=== PATIENT | female | born 1960 | race Caucasian/White ===

== ENCOUNTER 2019-07-16 15:23 | Outpatient (CLI) | payer OTHER, SELFPAY ==
--- NOTE | 2019-07-16 15:24 | MM_ITS ---
WS: [id number] BILATERAL DIGITAL SCREENING MAMMOGRAM WITH CAD CLINICAL INFORMATION: SCREENING HISTORY: Screening mammogram. No current complaints. COMPARISON: September 29, 2018 TECHNIQUE: Bilateral CC and MLO views. FINDINGS: Fatty-replaced breasts bilaterally. A few lucent centered calcifications. No suspicious focal mass, a symmetry, calcifications, or architectural distortion. No evidence of malignancy. MM/[id number] IMPRESSION: BI-RADS: 2-Benign FOLLOW UP: 1 Year Follow-up Recommend return to annual screening mammography.
== END 2019-07-16 15:24 | disposition home or self-care (01) ==
LOC: RADSHAW 15:24
PROVIDERS: Family Provider Family Medicine; PCP Family Medicine; Visit Provider Family Medicine
DX: Z12.31 Encounter for screening mammogram for malignant neoplasm of breast (principal)
CPT/HCPCS: 77067

== ENCOUNTER 2021-05-06 15:53 | Emergency (ER) | payer OTHER, SELFPAY ==
--- NOTE | 2021-05-06 03:22 | XRR_ITS ---
PROCEDURE INFORMATION: Exam: XR Chest Exam date and time: 05/06/2021 3:22 AM Age: 61 years old Clinical indication: Cough and dyspnea and fever; Additional info: SOB covid symptoms TECHNIQUE: Imaging protocol: XR of the chest. Views: 1 view. Total images: 1 COMPARISON: No relevant prior studies available. FINDINGS: Lungs: Subtle predominately bibasilar ground-glass interstitial lung disease which could reflect active interstitial pneumonitis. Pleural spaces: No pleural effusion. No pneumothorax. Heart/Mediastinum: Cardiac structures in configuration within normal limits. Bones/joints: Mild scoliotic curvature of the spine. Other findings: Obesity. XR/XR chest 1V portable [id number] IMPRESSION: Subtle predominately bibasilar ground-glass interstitial lung disease which could reflect active interstitial pneumonitis.
[2021-05-06 16:22] VITALS: BP 150/92; PULSE 100; RESP 16; TEMP 39.6; O2SAT 93; BMI 41.5
--- NOTE | 2021-05-06 17:08 | PC.NURSE ---
spoke with patient, she is in the COVID room, UA cup given, advised of needing urine sample, will update lab
[2021-05-06 19:34] LABS: Basophils % 0.2 %; Hematocrit 43.3 % (37.0-47.0); Hemoglobin 14.3 g/dL (11.5-15.3); Lymphocytes # 0.8 10^3/uL (0.8-4.8); Lymphocytes % 19.1 %; Mean Corpuscular Hemoglobin 29.1 pg (28.0-34.0); Mean Corpuscular Volume 88.2 fl (81-99); Mean Platelet Volume 9.6 fL (7.4-10.4); Monocytes # 0.2 10^3/uL (0.2-0.9); Monocytes % 3.7 %; Neutrophils # 3.13 10^3/uL (1.8-7.7); Neutrophils % 76.5 %; Nucleated Red Blood Cells % 0 %; Platelet Count 153 10^3/cmm (130-400); Red Blood Count 4.91 10^6/uL (4.1-5.3); Red Cell Distribution Width 13.7 % (12.1-15.1); White Blood Count 4.1 10^3/uL (4.0-10.0)
--- NOTE | 2021-05-06 19:44 | ED_ITS ---
Documented by User: VJ Ivan 05/07/21 01:59 HPI - COVID General: Chief Complaint: COVID symptoms Stated Complaint: fever, cough, Time Seen by Provider: 05/06/21 19:44 Triage information: Has fever, cough or shortness of breath . No known COVID + exposure last 14 days History of Present Illness: HPI Narrative: 61-year-old female comes in today with complaints of fever, cough, and chills since last Friday. Patient got a home COVID-19 test on and tested positive. Patient comes in today due to persistent symptoms. Patient reports no worsening symptoms but no improvement. Patient appears mildly unwell but not toxic. Patient takes medications routinely for blood pressure. Patient denies any other medical issues. COVID 19 common symptoms: positive non-productive cough COVID Results: No Data to Display Review of Systems General: Reports: 10 or more systems reviewed and unremarkable except in HPI and below Resp: Reports: non-productive cough Physical Exam Const: COMMON NORMALS: no acute distress and patient oriented x3 GENERAL APPEARANCE: cooperative HENMT: COMMON NORMALS: normocephalic, TM's normal bilaterally and Normal external nose present HEAD & SCALP: normal to inspection and normocephalic NOSE: Normal external nose present TYMPANIC MEMBRANE: TM's normal bilaterally MOUTH: Normal oral and palatal mucosa present THROAT: posterior oropharynx normal Eye: GENERAL EYE: appearance normal, both eyes and all related structures Neck/C-Spine: COMMON NORMALS: full ROM Lymph: LYMPHATIC: no lymphadenopathy noted Chest: COMMONS NORMALS: normal inspection of the chest Resp: COMMON NORMALS: normal respiratory effort EFFORT & INSPECTION: Yes able to speak in complete sentences AUSCULTATION: diminished lung sounds Cardio: COMMON NORMALS: regular rate and regular rhythm RATE: regular rate RHYTHM: regular rhythm GI: COMMON NORMALS: non-tender : COMMON NORMALS: Yes no CVA tenderness BLADDER/KIDNEY EXAM: Yes no CVA tenderness Back/Pelvis: COMMON NORMALS: no CVA tenderness and thoracic and lumbar spine normal to inspection Extremity: COMMON NORMALS: normal to inspection Neuro: COMMON NORMALS: patient oriented x3 and moves all extremities Psych: COMMON NORMALS: mental status grossly normal and cooperative Skin: COMMON NORMALS: no rashes or lesions noted GENERAL SKIN EXAM: no rashes or lesions noted Course ED course: 0155, IV has infused 1 L of IV fluids. Temperature was down to 100.4. Patient states that she felt better. Reviewed labs and x-rays with patient. Patient does have a patchy pneumonia bilaterally suggestive of viral pneumonia and COVID-19 infection. I discussed this with patient and recommended monoclonal antibodies which she was agreeable to. We will arrange for outpatient infusion for patient through case management. Vital Signs: Vital signs: Vital Signs Temperature 100.4 F H 05/06/21 23:27 Pulse Rate 73 05/07/21 00:31 Respiratory Rate 18 05/07/21 00:31 Blood Pressure 104/62 05/07/21 00:31 Pulse Oximetry 97 05/07/21 00:31 MDM - COVID MDM Narrative: Medical decision making narrative: Patient comes in today for complaints of fever and discomfort for about 1 week. Patient did a home COVID- 19 test that showed positive result. On exam patient had decreased breath sounds in bilateral lung nelson. Skin was warm and dry. Vital signs were normal except for elevation in temperature of 103. Differential diagnosis include pneumonia, COVID-19, sepsis. Laboratory values noted a normal D-dimer, normal CBC, and normal CMP. Chest x-ray did note patchy pneumonia. COVID-19 PCR test was used to verify home test. Plan for patient to have monoclonal antibody therapy through outpatient setting. Patient was given 1 L of IV fluids and 6 mg of dexamethasone IV push. Patient did report improvement in symptoms after therapy. Patient reported understanding of care plan and need for follow- up or return for worsening signs and symptoms. Lab Data: Labs: Lab Results 05/06/21 05/06/21 05/06/21 19:13 19:13 20:08 WBC 4.1 10^3/uL 10^3/ uL (4.0-10.0) RBC 4.91 10^6/uL 10^6 /uL (4.1-5.3) Hgb 14.3 g/dL g/dL (11.5-15.3) Hct 43.3 % % (37.0-47.0) MCV 88.2 fl fl (81-99) MCH 29.1 pg pg (28.0-34.0) MCHC 33.0 g/dL g/dL (30.0-36.0) RDW 13.7 % % (12.1-15.1) Plt Count 153 10^3/cmm 10^3 /cmm (130-400) MPV 9.6 fL fL (7.4-10.4) Neut % (Auto) 76.5 % % Lymph % (Auto) 19.1 % % [place] % (Auto) 3.7 % % Eos % (Auto) 0.0 % % Baso % (Auto) 0.2 % % Neut # (Auto) 3.13 10^3/uL 10^3 /uL (1.8-7.7) Lymph # (Auto) 0.8 10^3/uL 10^3/ uL (0.8-4.8) [place] # (Auto) 0.2 10^3/uL 10^3/ uL (0.2-0.9) Eos # (Auto) 0.0 10^3/uL 10^3/ uL (0.0-0.8) Baso # (Auto) 0.0 10^3/uL 10^3/ uL (0.0-0.1) Nucleated RBC % (a uto) 0 % % Nucleated RBCs # 0.0 /100WBC /100W BC D-Dimer Sodium 135 mmol/L L mmol /L (136-145) Potassium 4.5 mmol/L mmol/L (3.5-5.1) Chloride 99 mmol/L mmol/L (98-107) Carbon Dioxide 25 mmol/L mmol/L (22-29) Anion Gap 15.5 (5-19) BUN 8 mg/dL mg/dL (8-23) Creatinine 0.7 mg/dL mg/dL (0.5-0.9) GFR Calculation 85.4 mL/min L mL/ min (90-130) Glucose 106 mg/dL mg/dL (65-115) Calculated Osmolal ity 279 mOsm/kg L mOs m/kg (285-295) Calcium 8.0 mg/dL L mg/dL (8.5-10.5) Total Bilirubin 0.2 mg/dL mg/dL (0.15-1.2) AST 90 U/L H U/L (0-32) ALT 62 U/L H U/L (0-33) Alkaline Phosphata se 69 IU/L IU/L (35-105) Total Protein 6.6 g/dL g/dL (6.6-8.7) Albumin 3.9 g/dL g/dL (3.5-5.2) Globulin 2.7 g/dL g/dL (1.3-4.6) Lipase 35 U/L U/L (13-60) Urine Color Yellow (Yellow) Urine Appearance Clear (CLEAR) Urine pH 5 (5-7) Ur Specific Gravit y 1.010 (1.005-1.030) Urine Protein Neg (Negative) Urine Glucose (UA) Norm (Normal) Urine Ketones Negative (Negative) Urine Blood 2+ H (Negative) Urine Nitrate Negative (Negative) Urine Bilirubin Neg (Negative) Urine Urobilinogen Norm mg/dL mg/dL (Negative) Ur Leukocyte Pilar ase Negative (Negative) Urine RBC 15-25 /hpf H /hpf (0-2) Urine WBC 0-4 /hpf H /hpf (0-5) Ur Squamous Epith Cells 25-40 /hpf H /hpf (0-5) Amorphous Sediment Not Reportable Urine Bacteria 4+ /hpf H /hpf (NONE) 05/06/21 21:35 WBC RBC Hgb Hct MCV MCH MCHC RDW Plt Count MPV Neut % (Auto) Lymph % (Auto) [place] % (Auto) Eos % (Auto) Baso % (Auto) Neut # (Auto) Lymph # (Auto) [place] # (Auto) Eos # (Auto) Baso # (Auto) Nucleated RBC % (a uto) Nucleated RBCs # D-Dimer 0.52 ug/mIFEU ug/ mIFEU (0-0.59) Sodium Potassium Chloride Carbon Dioxide Anion Gap BUN Creatinine GFR Calculation Glucose Calculated Osmolal ity Calcium Total Bilirubin AST ALT Alkaline Phosphata se Total Protein Albumin Globulin Lipase Urine Color Urine Appearance Urine pH Ur Specific Gravit y Urine Protein Urine Glucose (UA) Urine Ketones Urine Blood Urine Nitrate Urine Bilirubin Urine Urobilinogen Ur Leukocyte Pilar ase Urine RBC Urine WBC Ur Squamous Epith Cells Amorphous Sediment Urine Bacteria COVID Results: No Data to Display Discharge Plan Discharge Patient Disposition: Home Clinical Impression: Pneumonia due to 2018- Condition: Stable Prescriptions: New dexamethasone 4 mg tablet 4 mg PO BID Qty: 10 RF: 0 albuterol sulfate 90 mcg/actuation HFA aerosol inhaler 2 inh inhalation Q4H PRN (Reason: shortness of breath or wheezing) Qty: 8.5 RF: 0 Discharge Orders: Discharge ED (Routine); Ordered 12/27/21 Ordered By: Bruno Olivier Other Ambulatory Orders: Request for MCA (Routine) Timeframe: 1 Day Facility: [facility] - Location: [facility] Ordered By: Bruno Olivier Discharge Diet: Usual diet Discharge Activity: Increase activity as tolerated Patient Instructions: Viral Pneumonia (ED) Activity Restrictions/Additional Instructions: Case management should contact you tomorrow morning for monoclonal antibody infusion. Continue drinking plenty of water and fluids. Healthy diet and exercise. Take dexamethasone 4 mg twice a day for the next 5 days. Use albuterol 2 puffs every 4 hours as needed for shortness of breath or wheezing. Follow-up with primary care for further instruction or return to the ER for worsening symptoms. Coding Level of Care Code ED Pump Station Operator for Chg Fwd Exam Comprehensive Documented by User: eJan García DO 05/07/21 02:08 HPI - COVID General: Chief Complaint: COVID symptoms Stated Complaint: fever, cough, Time Seen by Provider: 05/06/21 19:44 COVID Results: No Data to Display Course Vital Signs: Vital signs: Vital Signs Temperature 100.4 F H 05/06/21 23:27 Pulse Rate 73 05/07/21 00:31 Respiratory Rate 18 05/07/21 00:31 Blood Pressure 104/62 05/07/21 00:31 Pulse Oximetry 97 05/07/21 00:31 MDM - COVID MDM Narrative: Medical decision making narrative: This patient was originally seen by VJ Duenas. I agree with his history, evaluation, and treatment. Lab Data: Labs: Lab Results 05/06/21 05/06/21 05/06/21 19:13 19:13 20:08 WBC 4.1 10^3/uL 10^3/ uL (4.0-10.0) RBC 4.91 10^6/uL 10^6 /uL (4.1-5.3) Hgb 14.3 g/dL g/dL (11.5-15.3) Hct 43.3 % % (37.0-47.0) MCV 88.2 fl fl (81-99) MCH 29.1 pg pg (28.0-34.0) MCHC 33.0 g/dL g/dL (30.0-36.0) RDW 13.7 % % (12.1-15.1) Plt Count 153 10^3/cmm 10^3 /cmm (130-400) MPV 9.6 fL fL (7.4-10.4) Neut % (Auto) 76.5 % % Lymph % (Auto) 19.1 % % [place] % (Auto) 3.7 % % Eos % (Auto) 0.0 % % Baso % (Auto) 0.2 % % Neut # (Auto) 3.13 10^3/uL 10^3 /uL (1.8-7.7) Lymph # (Auto) 0.8 10^3/uL 10^3/ uL (0.8-4.8) [place] # (Auto) 0.2 10^3/uL 10^3/ uL (0.2-0.9) Eos # (Auto) 0.0 10^3/uL 10^3/ uL (0.0-0.8) Baso # (Auto) 0.0 10^3/uL 10^3/ uL (0.0-0.1) Nucleated RBC % (a uto) 0 % % Nucleated RBCs # 0.0 /100WBC /100W BC D-Dimer Sodium 135 mmol/L L mmol /L (136-145) Potassium 4.5 mmol/L mmol/L (3.5-5.1) Chloride 99 mmol/L mmol/L (98-107) Carbon Dioxide 25 mmol/L mmol/L (22-29) Anion Gap 15.5 (5-19) BUN 8 mg/dL mg/dL (8-23) Creatinine 0.7 mg/dL mg/dL (0.5-0.9) GFR Calculation 85.4 mL/min L mL/ min (90-130) Glucose 106 mg/dL mg/dL (65-115) Calculated Osmolal ity 279 mOsm/kg L mOs m/kg (285-295) Calcium 8.0 mg/dL L mg/dL (8.5-10.5) Total Bilirubin 0.2 mg/dL mg/dL (0.15-1.2) AST 90 U/L H U/L (0-32) ALT 62 U/L H U/L (0-33) Alkaline Phosphata se 69 IU/L IU/L (35-105) Total Protein 6.6 g/dL g/dL (6.6-8.7) Albumin 3.9 g/dL g/dL (3.5-5.2) Globulin 2.7 g/dL g/dL (1.3-4.6) Lipase 35 U/L U/L (13-60) Urine Color Yellow (Yellow) Urine Appearance Clear (CLEAR) Urine pH 5 (5-7) Ur Specific Gravit y 1.010 (1.005-1.030) Urine Protein Neg (Negative) Urine Glucose (UA) Norm (Normal) Urine Ketones Negative (Negative) Urine Blood 2+ H (Negative) Urine Nitrate Negative (Negative) Urine Bilirubin Neg (Negative) Urine Urobilinogen Norm mg/dL mg/dL (Negative) Ur Leukocyte Pilar ase Negative (Negative) Urine RBC 15-25 /hpf H /hpf (0-2) Urine WBC 0-4 /hpf H /hpf (0-5) Ur Squamous Epith Cells 25-40 /hpf H /hpf (0-5) Amorphous Sediment Not Reportable Urine Bacteria 4+ /hpf H /hpf (NONE) 05/06/21 21:35 WBC RBC Hgb Hct MCV MCH MCHC RDW Plt Count MPV Neut % (Auto) Lymph % (Auto) [place] % (Auto) Eos % (Auto) Baso % (Auto) Neut # (Auto) Lymph # (Auto) [place] # (Auto) Eos # (Auto) Baso # (Auto) Nucleated RBC % (a uto) Nucleated RBCs # D-Dimer 0.52 ug/mIFEU ug/ mIFEU (0-0.59) Sodium Potassium Chloride Carbon Dioxide Anion Gap BUN Creatinine GFR Calculation Glucose Calculated Osmolal ity Calcium Total Bilirubin AST ALT Alkaline Phosphata se Total Protein Albumin Globulin Lipase Urine Color Urine Appearance Urine pH Ur Specific Gravit y Urine Protein Urine Glucose (UA) Urine Ketones Urine Blood Urine Nitrate Urine Bilirubin Urine Urobilinogen Ur Leukocyte Pilar ase Urine RBC Urine WBC Ur Squamous Epith Cells Amorphous Sediment Urine Bacteria COVID Results: No Data to Display Discharge Plan Discharge Patient Disposition: Home Clinical Impression: Pneumonia due to 2019-nCoV Condition: Stable Prescriptions: New dexamethasone 4 mg tablet 4 mg PO BID Qty: 10 RF: 0 albuterol sulfate 90 mcg/actuation HFA aerosol inhaler 2 inh inhalation Q4H PRN (Reason: shortness of breath or wheezing) Qty: 8.5 RF: 0 Discharge Orders: Discharge ED (Routine); Ordered 05/07/21 Ordered By: Bruno Olivier Other Ambulatory Orders: Request for MCA (Routine) Timeframe: 1 Day Facility: [facility] - Location: [facility] Ordered By: Bruno Olivier Discharge Diet: Usual diet Discharge Activity: Increase activity as tolerated Patient Instructions: Viral Pneumonia (ED) Activity Restrictions/Additional Instructions: Case management should contact you tomorrow morning for monoclonal antibody infusion. Continue drinking plenty of water and fluids. Healthy diet and exercise. Take dexamethasone 4 mg twice a day for the next 5 days. Use albuterol 2 puffs every 4 hours as needed for shortness of breath or wheezing. Follow-up with primary care for further instruction or return to the ER for worsening symptoms. Coding Level of Care Code ED Pump Station Operator for Regi Fwd Exam Comprehensive
[2021-05-06 20:01] LABS: Alanine Aminotransferase 62 U/L (0-33); Albumin Level 3.9 g/dL (3.5-5.2); Alkaline Phosphatase 69 IU/L (35-105); Anion Gap 15.5 (5-19); Aspartate Amino Transferase 90 U/L (0-32); Blood Urea Nitrogen 8 mg/dL (8-23); Carbon Dioxide 25 mmol/L (22-29); Chloride 99 mmol/L (98-107); Globulin 2.7 g/dL (1.3-4.6); Glomerular Filtration Rate 85.4 mL/min (90-130); Glucose 106 mg/dL (65-115); Lipase 35 U/L (13-60); Osmolality Calculated 279 mOsm/kg (285-295); Potassium 4.5 mmol/L (3.5-5.1); Sodium 135 mmol/L (136-145); Total Bilirubin 0.2 mg/dL (0.15-1.2); Total Protein 6.6 g/dL (6.6-8.7)
[2021-05-06] MEDS: acetaminophen 500 mg Tablet 1000 MG PO (20:39)
[2021-05-06] MEDS: sodium chloride 0.9% 1,000 ML 999 ML IV (20:48)
[2021-05-06 21:04] LABS: Add Urine Microscopic? YES; Bilirubin Urine Neg (Negative); Blood Urine 2+ (Negative); Glucose Urine UA Norm (Normal); Ketones Urine Negative (Negative); Leukocyte Esterase Urine Negative (Negative); Nitrate Urine Negative (Negative); Protein Urine Neg (Negative); Urine Appearance Clear (CLEAR); Urine Color Yellow (Yellow); Urobilinogen Urine Norm (Negative); pH Urine 5 (5-7)
[2021-05-06 21:05] LABS: Add Urine Culture? No; Bacteria Urine 4+ /hpf; RBC Urine 15-25 /hpf (0-2); Squamous Epithelial Cell Urine 25-40 /hpf (0-5); WBC Urine 0-4 /hpf (0-5)
[2021-05-06 21:24] VITALS: BP 144/76; PULSE 88; RESP 18; TEMP 38.7; O2SAT 96
[2021-05-06 21:27] VITALS: O2SAT 92
[2021-05-06 22:48] LABS: D Dimer 0.52 ug/mIFEU (0-0.59)
[2021-05-06] MEDS: dexamethasone 10 mg/mL INJ 6 MG IVP (23:22)
[2021-05-06 23:27] VITALS: BP 132/61; PULSE 88; RESP 18; TEMP 38; O2SAT 98
[2021-05-07 00:31] VITALS: BP 104/62; PULSE 73; RESP 18; O2SAT 97
[2021-05-07 02:16] VITALS: BP 128/61; PULSE 69; RESP 17; TEMP 37.8; O2SAT 94
[2021-05-07 02:29] LABS: Adenovirus Not Detected (NOT DETECT); Chlamydia Pneumoniae Not Detected (NOT DETECT); Coronavirus 229E,HKU1,NL63,OC4 Not Detected (NOT DETECT); Human Metapneumovirus Not Detected (NOT DETECT); Human Rhinovirus/Enterovirus Not Detected (NOT DETECT); Influenza A Not Detected (NOT DETECT); Influenza A H1 Not Detected (NOT DETECT); Influenza A H1-2009 Not Detected (NOT DETECT); Influenza A H3 Not Detected (NOT DETECT); Influenza B Not Detected (NOT DETECT); Mycoplasma Pneumoniae Not Detected (NOT DETECT); Parainfluenza Virus Type 1 Not Detected (NOT DETECT); Parainfluenza Virus Type 2 Not Detected (NOT DETECT); Parainfluenza Virus Type 3 Not Detected (NOT DETECT); Parainfluenza Virus Type 4 Not Detected (NOT DETECT); Respiratory Syncytial Virus A Not Detected (NOT DETECT); Respiratory Syncytial Virus B Not Detected (NOT DETECT); SARS-COV-2 Detected (NOT DETECT)
== END 2021-05-07 02:27 | disposition home or self-care (01) ==
PROVIDERS: Emergency Medicine; Emergency Provider Nurse Practitioner Family
DX: U07.1 COVID-19 (principal); J12.82 Pneumonia due to coronavirus disease 2019
CPT/HCPCS: 71045; 80053; 81001; 83690; 85025; 85378; 87635; 96361; 96374; 99284; J1100; J7030

== ENCOUNTER 2021-05-07 10:38 | Outpatient (CLI) | payer OTHER, SELFPAY ==
[2021-05-07 10:48] VITALS: BP 137/76; BP 138/74; PULSE 71; PULSE 74; RESP 18; RESP 20; TEMP 36.8; TEMP 36.9; O2SAT 97; BMI 41.5
[2021-05-07 11:42] VITALS: BP 135/73; PULSE 66; RESP 20; TEMP 36.8; O2SAT 97
[2021-05-07 12:34] VITALS: BP 138/74; PULSE 74; RESP 18; TEMP 36.8; O2SAT 97
== END 2021-05-07 10:39 | disposition home or self-care (01) ==
LOC: OPS 10:41
PROVIDERS: PCP Family Medicine; Visit Provider Nurse Practitioner Family
DX: U07.1 COVID-19 (principal)
CPT/HCPCS: 96365

== ENCOUNTER 2021-05-14 11:56 | Emergency (ER) | payer OTHER, SELFPAY ==
--- NOTE | 2021-05-14 12:42 | W.ED.COVID ---
HPI - COVID General: Chief Complaint: Shortness of Breath/Dyspnea Stated Complaint: SOB, Coughing, Not any better COVID + Time Seen by Provider: 05/14/21 13:13 History of Present Illness: HPI Narrative: Patient history of positive Covid. Patient here desiring more steroids because she said they helped her. Patient's had MCA infusion done. Patient also taken breathing treatments. Patient states shortness of breath is not changed from previous. MD complaint: known COVID positive COVID 19 common symptoms: positive non-productive cough and dyspnea; negative fever(s), chills, body aches, headache(s), throat pain, nasal congestion, nausea or vomiting COVID 19 other sytmptoms: negative chest pain Onset (ago): day(s) Severity: mild COVID Results: No Data to Display Review of Systems Const: Denies: fever(s), chills or body aches Eyes: Denies: change in vision or blurry vision ENMT: Denies: throat pain or nasal congestion Card: Denies: chest pain or dyspnea on exertion Resp: Reports: dyspnea and non-productive cough; Denies: wheezing, stridor, pain on inspiration, hemoptysis or chest congestion GI: Denies: abdominal pain, nausea or vomiting Musc: Denies: extremity pain Skin/Breast: Denies: rash Neuro: Denies: headache(s) Psych: Denies: anxiety or depression Dennis/Lymph: Denies: easy bruising Physical Exam Const: COMMON NORMALS: no acute distress, average body habitus and patient oriented x3 HENMT: COMMON NORMALS: normocephalic HEAD & SCALP: normal to inspection and normocephalic FACE & SINUS: normal facial exam Eye: COMMON NORMALS: conjunctivae normal GENERAL EYE: appearance normal, both eyes and all related structures CONJUNCTIVA: Yes conjunctivae normal Neck/C-Spine: COMMON NORMALS: no JVD Chest: COMMONS NORMALS: normal inspection of the chest Resp: COMMON NORMALS: normal respiratory effort, No retractions, No use of accessory muscles and clear to auscultation bilaterally EFFORT & INSPECTION: Yes able to speak in complete sentences AUSCULTATION: clear to auscultation bilaterally Cardio: COMMON NORMALS: no JVD, regular rate and regular rhythm RATE: regular rate RHYTHM: regular rhythm GI: COMMON NORMALS: Normal to inspection, nondistended, normoactive bowel sounds present Extremity: COMMON NORMALS: normal to inspection and full ROM Neuro: COMMON NORMALS: patient oriented x3 Course Vital Signs: Vital signs: Vital Signs Temperature 97.8 F 05/14/21 12:56 Pulse Rate 57 L 05/14/21 12:56 Respiratory Rate 22 H 05/14/21 12:56 Blood Pressure 155/68 05/14/21 12:56 Pulse Oximetry 95 05/14/21 12:56 MDM - COVID MDM Narrative: Medical decision making narrative: Patient states she is no acute distress. Is positive for Covid. Patient is requesting more steroids because she said they helped her feel better. She was unable to obtain release from her primary care provider today and presents here with need for prescription. Denies any worsening symptoms. COVID Results: No Data to Display Discharge Plan Discharge Patient Disposition: Home Clinical Impression: COVID-19 Condition: Stable Prescriptions: New Decadron 6 mg tablet 6 mg PO DAILY Qty: 7 RF: 0 No Action dexamethasone 4 mg tablet 4 mg PO BID Qty: 10 RF: 0 albuterol sulfate 90 mcg/actuation HFA aerosol inhaler 2 inh inhalation Q4H PRN (Reason: shortness of breath or wheezing) Qty: 8.5 RF: 0 Tylenol 325 mg Capsule RF: 0 Discharge Orders: Discharge ED (Routine); Ordered 05/14/21 Ordered By: Jeet No Referrals: Ree Garza MD [Primary Care Provider] - Discharge Diet: Usual diet Discharge Activity: Increase activity as tolerated Patient Instructions: COVID-19 (Coronavirus Disease 2019) (ED) Activity Restrictions/Additional Instructions: Follow-up with medical provider as directed. Take medications as prescribed. Return to the ER or your medical provider if condition worsens. Please read and understand discharge instructions. If any questions ask please. Coding Level of Care Code ED Air Traffic Control Equipment Repairer for Regi Fwd Exam Comprehensive
[2021-05-14 12:56] VITALS: BP 155/68; PULSE 57; RESP 22; TEMP 36.6; O2SAT 95; BMI 40.4
--- NOTE | 2021-05-14 14:33 | PC.NURSE ---
patient left without paperwork, prescription, etc
== END 2021-05-14 14:35 | disposition home or self-care (01) ==
PROVIDERS: Emergency Provider Nurse Practitioner Family; PCP Family Medicine
DX: U07.1 COVID-19 (principal)
CPT/HCPCS: 99281

== ENCOUNTER 2022-06-28 10:49 | Outpatient (CLI) | payer OTHER, SELFPAY ==
--- NOTE | 2022-06-28 11:02 | MM_ITS ---
WS: [id number] BILATERAL SCREENING DIGITAL TOMOSYNTHESIS MAMMOGRAM WITH CAD HISTORY: SCREENING COMPARISON: 07/16/2019 and 09/29/2018 Bilateral CC and MLO views with tomosynthesis and synthetic mammography submitted. Computer aided det ection analyzed. Breast composition: There are scattered areas of fibroglandular density. No suspicious masses, microc alcifications or architectural distortion. Benign calcifications anterior LEFT breast. MM/[place] [id number] IMPRESSION: BI-RADS: 2-Benign FOLLOW UP: 1 Year Follow-up
== END 2022-06-28 10:50 | disposition home or self-care (01) ==
PROVIDERS: PCP Family Medicine; Visit Provider Family Medicine
DX: Z12.31 Encounter for screening mammogram for malignant neoplasm of breast (principal)
CPT/HCPCS: 77063; 77067

== ENCOUNTER → 2024-04-14 06:59 | Outpatient (BNVA) | payer OTHER, SELFPAY | PROVIDERS: PCP Family Medicine; Visit Provider Podiatrist Foot & Ankle Surgery | DX: M79.672 Pain in left foot (principal); M76.822 Posterior tibial tendinitis, left leg | CPT/HCPCS: 73630 ==

== ENCOUNTER 2024-04-14 09:37 | Outpatient (CLI) | payer OTHER, SELFPAY | END 2024-04-14 09:38 | disposition home or self-care (01) | LOC: SPT 09:37 | PROVIDERS: PCP Family Medicine; Visit Provider Podiatrist Foot & Ankle Surgery | DX: Z46.89 Encounter for fitting and adjustment of other specified devices (principal); M76.822 Posterior tibial tendinitis, left leg | CPT/HCPCS: L4361 ==

== ENCOUNTER → 2024-06-29 13:51 | Outpatient (BNVA) | payer OTHER, SELFPAY | PROVIDERS: PCP Family Medicine; Visit Provider Registered Nurse Neonatal Intensive Care | DX: R52 Pain, unspecified (principal) | CPT/HCPCS: 73562 ==

== ENCOUNTER 2024-07-23 12:58 | Outpatient (CLI) | payer OTHER, SELFPAY ==
--- NOTE | 2024-07-23 13:20 | MR_ITS ---
WS: [id number] MRI LEFT KNEE HISTORY: LEFT knee pain when walking. COMPARISON: Radiograph 06/29/2024 Anterior cruciate ligament: Intact. Posterior cruciate ligament: Intact. Medial collateral ligament: Mild MCL sprain. Very slight removal from the joint line by extruded meniscus and osteophyte. Posterior lateral corner structures: Intact. Medial menisci: Mild extrusion of the anterior horn from the joint line. Lateral meniscus: Intrasubstance degeneration in the posterior horn with fraying of the surfaces. Extensor mechanism: Normal distal quadriceps tendon. Multifocal patellar tendinopathy. Fluid and soft tissue: Small suprapatellar joint effusion. No Guzman's cyst. Osseous and articular structures: Patellofemoral compartment: Moderate to severe patellofemoral joint space narrowing. Marginal osteophytes with complete loss of cartilage. No marrow edema. Medial compartment: Moderate narrowing of the medial compartment with diffuse chondromalacia. Marginal osteophytes. No fracture. Lateral compartment: Moderate narrowing of the lateral compartment. Full- thickness cartilage defects at the weightbearing surface of the femoral condyle. Small marginal osteophytes. No marrow edema. MR/MR knee LT con* [id number] IMPRESSION: 1. 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 More focal full-thickness cartilage defects along the w eightbearing surface of the lateral compartment. 2. Slightly extruded anterior horn of the medial meniscus from the joint line. 3. No ACL tear. 4. No fractures or marrow edema.
== END 2024-07-23 12:59 | disposition home or self-care (01) ==
PROVIDERS: PCP Family Medicine; Visit Provider Family Medicine
DX: M25.362 Other instability, left knee (principal); M17.12 Unilateral primary osteoarthritis, left knee; R93.6 Abnormal findings on diagnostic imaging of limbs; S83.412A Sprain of medial collateral ligament of left knee, initial encounter; X58.XXXA Exposure to other specified factors, initial encounter; M23.312 Other meniscus derangements, anterior horn of medial meniscus, left knee; M23.322 Other meniscus derangements, posterior horn of medial meniscus, left knee; M76.52 Patellar tendinitis, left knee; M25.762 Osteophyte, left knee; M94.262 Chondromalacia, left knee
CPT/HCPCS: 73721

== ENCOUNTER 2025-05-02 08:58 | Outpatient (CLI) | payer OTHER, SELFPAY ==
--- NOTE | 2025-05-02 09:06 | MM_ITS ---
WS: [id number] BILATERAL SCREENING DIGITAL TOMOSYNTHESIS MAMMOGRAM WITH CAD HISTORY: SCREENING COMPARISON: 06/28/2022, 07/16/2019 Bilateral CC and MLO views with tomosynthesis and synthetic mammography submitted. Computer aided detection analyzed. Breast composition: There are scattered areas of fibroglandular density. No suspicious masses, microcalcifications or architectural distortion. Benign calcification anterior LEFT breast. MM/MM scr BI tomosynthesis [id number] IMPRESSION: BI-RADS: 2 - Benign. FOLLOW UP: 1 Year Follow-up
== END 2025-05-02 08:59 | disposition home or self-care (01) ==
PROVIDERS: Absent Provider Obstetrics & Gynecology Gynecologic Oncology; PCP Family Medicine; Visit Provider Family Medicine
DX: Z12.31 Encounter for screening mammogram for malignant neoplasm of breast (principal); R92.323 Mammographic fibroglandular density, bilateral breasts; R92.1 Mammographic calcification found on diagnostic imaging of breast
CPT/HCPCS: 77063; 77067